=== PATIENT | female | born 1950 ===

== ENCOUNTER 2021-03-08 06:30 | Day surgery (SDC) | payer OTHER ==
[~2021-03-08 06:30] MED LIST: ALPRAZOLAM OD0.25 MG PO; COZAAR100 MG PO; CRESTOR10 MG PO; ESCITALOPRAM OX10 MG PO; GLIPIZIDE XL2.5 MG PO; SYNTHROID50 MCG PO; TENORMIN25 MG PO
== END 2021-03-08 17:30 | disposition home or self-care (01) ==
LOC: CIR.AMB 06:30
PROVIDERS: ATTEND Colon & Rectal Surgery
DX: D12.9 Benign neoplasm of anus and anal canal (principal); D12.8 Benign neoplasm of rectum; K64.1 Second degree hemorrhoids; Z20.822 Contact with and (suspected) exposure to COVID-19